=== PATIENT | female | born 1985 | race African-American/Black ===

== ENCOUNTER 2016-12-25 16:53 | Emergency (ER) | payer MEDICAID ==
[~2016-12-25] VITALS: Ht 162.6 cm; Wt 63.5 kg
--- NOTE | 2016-12-25 17:40 | Emergency Room Report ---
History of Present Illness General Chief Complaint: Multiple Trauma/Fall Source: Patient Present Illness HPI 31-year-old female presents to the emergency department complaining of 8/ 10 in severity pain to the left side of her neck that radiates down into the left shoulder, left shoulder pain, and left anterior knee pain status post mechanical slip and fall yesterday. Patient states that her symptoms were progressive overnight and she feels as though the side of her neck and upper shoulder muscles are tight as if she has a knot. She also reports tenderness. Patient states pain with movement of the shoulder, an exacerbation of her knee pain upon walking. She denies hitting her head or loss of consciousness. Patient denies midline neck or back pain. Denies numbness tingling or loss of sensation or gross motor movements of the extremities, incontinence of bowel or bladder. Denies CP, Palpitations, LOC, AMS, dizziness, Changes in Vision, Sensation, paresthesias, or a sudden severe headache. Allergies: Coded Allergies: AMOXICILLIN (Verified Allergy, Unknown, 12/25/16) Patient History Past Medical History: see triage record Past Surgical History: none Pertinent Family History: none Last Menstrual Period: 11/19/16 Now: No Immunizations: UTD Reviewed Nursing Documentation: PMH: Agreed, PSxH: Agreed Nursing Documentation-PMH Past Medical History: No Stated History Review of Systems All Other Systems: negative except mentioned in HPI Physical Exam Vital Signs Date Time Temp Pulse Resp B/P (MAP) Pulse Ox O2 Delivery O2 Flow Rate FiO2 12/25/16 17:01 98.2 74 14 102/67 98 Room Air Sp02 EP Interpretation: reviewed, normal General Appearance: no apparent distress, alert, GCS 15, non-toxic Head: normocephalic, atraumatic ENT: hearing grossly normal, normal voice Neck: full range of motion, tender lateral - left lateral ttp in the musculature, no midline ttp. Respiratory: chest non-tender, lungs clear, normal breath sounds, speaking full sentences Cardiovascular #1: regular rate, rhythm, normal capillary refill Gastrointestinal: non tender, soft Musculoskeletal: back normal, gait/station normal, normal range of motion, other - no midline spinal ttp. , tender - left knee anterior and lateral TTP, no increased laxity. no erythema, no incrased temperature to palpation, FROM . TTP to the top of the left shoulder and the lateral aspect of the left shoulder , mild trapezius muscle swelling noted, no obvious deformity, pain with FROM. Neurologic: alert, oriented x3, responsive, motor strength/tone normal, sensory intact, speech normal Skin: normal color, no rash, warm/dry, well hydrated Medical Decision Making PA Attestation Dr. uBtt is my supervising Physician whom patient management has been discussed with. Diagnostic Impression: Primary Impression: Muscle strain Additional Impressions: Contusion Qualified Codes: S80.02XA - Contusion of left knee, initial encounter Left knee sprain Qualified Codes: S83.92XA - Sprain of unspecified site of left knee, initial encounter Shoulder pain, acute Qualified Codes: M25.512 - Pain in left shoulder ER Course 31-year-old female presents to the emergency department complaining of 8/ 10 in severity pain to the left side of her neck that radiates down into the left shoulder, left shoulder pain, and left anterior knee pain status post mechanical slip and fall yesterday. Patient states that her symptoms were progressive overnight and she feels as though the side of her neck and upper shoulder muscles are tight as if she has a knot. She also reports tenderness. Patient states pain with movement of the shoulder, an exacerbation of her knee pain upon walking. She denies hitting her head or loss of consciousness. Patient denies midline neck or back pain. Denies numbness tingling or loss of sensation or gross motor movements of the extremities, incontinence of bowel or bladder. Denies CP, Palpitations, LOC, AMS, dizziness, Changes in Vision, Sensation, paresthesias, or a sudden severe headache. Ddx considered but are not limited to Fracture, dislocation, contusion, Sprain/ Strain/Spasm just to name a few Vital signs: are WNL, pt. is afebrile H&PE are most consistent with musculoskeletal injury will perform imaging to r/ o fractures/dislocations. ORDERS: - X-rays: Left Shoulder, and Left knee-- Unremarkable, no acute pathology. ED INTERVENTIONS: - Soma PO - Tylenol PO Medardo wrap applied to the left knee by RN. Pt. remains neurovascularly intact. - Left arm Sling applied by RN Pt. remains neurovascularly intact. DISCHARGE: At this time pt. is stable for d/c to home. Will provide printed patient care instructions, and any necessary prescriptions. Care plan and follow up instructions have been discussed with the patient prior to discharge. Other X-Ray Diagnostic Results Other X-Ray Diagnostic Results #1: X-Ray ordered: LEFT KNEE # of Views/Limited Vs Complete: 3 View Indication: Pain EP Interpretation: Yes PA Xray: Interpretation reviewed, by supervising , and agrees with findings. Interpretation: no dislocation, no soft tissue swelling, no fractures Impression: No acute disease Electronically Signed by: Yaquelin Cox PA-C Other X-Ray Diagnostic Results #2: X-Ray ordered: LEFT SHOULDER # of Views/Limited Vs Complete: 3 View Indication: Pain EP Interpretation: Yes PA Xray: Interpretation reviewed, by supervising MD, and agrees with findings. Interpretation: no dislocation, no soft tissue swelling, no fractures Impression: No acute disease Electronically Signed by: Yaquelin Cox PA-C Last Vital Signs Date Time Temp Pulse Resp B/P (MAP) Pulse Ox O2 Delivery O2 Flow Rate FiO2 12/25/16 17:01 98.2 74 14 102/67 98 Room Air Disposition: HOME, SELF-CARE Condition: Stable Scripts Ibuprofen* (MOTRIN*) 400 Mg Tablet 400 MG ORAL THREE TIMES A DAY, #30 TAB 0 Refills Prov: Yaquelin Cox 12/25/16 Methocarbamol* (ROBAXIN-750*) 750 Mg Tablet 750 MG PO QID for 7 Days, #28 TAB 0 Refills Prov: Yaquelin Cox 12/25/16 Referrals: NOT CHOSEN IPA/,REFERRING (PCP) Patient Instructions: Contusion, [id number], Knee Sprain, [id number], Muscle Strain, [id number] Additional Instructions: Take medications as directed. Follow up with a Primary Care Provider in 3-5 days, even if your symptoms have resolved. --Please review list of primary care clinics, if you do not already have a primary care provider Return sooner to ED if new symptoms occur, or current symptoms become worse. Do not drink alcohol, drive, or operate heavy machinery while taking Muscle Relaxers as this may cause drowsiness. - Please note that this Emergency Department Report was dictated using [employer] technology software, occasionally this can lead to erroneous entry secondary to interpretation by the dictation equipment. Yaquelin Cox Dec 25, 2016 17:40
[2016-12-25] MEDS ORDERED: IBUPROFEN400 MG ORAL (18:24)
[2016-12-25] MEDS ORDERED: ROBAXIN-750750 MG PO (18:24)
[2016-12-25 18:37] VITALS: BP 111/78
--- NOTE | 2016-12-26 09:17 | Diagnostic Imaging Report ---
Indications: PAIN, status post fall Technique: Three views of the left knee Comparison: None Findings: No acute fractures. No dislocations. Joint spaces are preserved. No radiopaque foreign body. Normal mineralization. Impression: No acute process
--- NOTE | 2016-12-26 09:18 | Diagnostic Imaging Report ---
Indication: PAIN, status post fall Technique: 3 views of the left shoulder Comparison: none Findings: No acute fractures. No dislocations. The joint spaces are preserved Impression:Negative
== END 2016-12-25 18:39 | disposition home or self-care (01) ==
LOC: EMR 17:24
DX: T14.8XXA Other injury of unspecified body region, initial encounter (principal); S80.02XA Contusion of left knee, initial encounter; S83.92XA Sprain of unspecified site of left knee, initial encounter; M25.512 Pain in left shoulder; W01.0XXA Fall on same level from slipping, tripping and stumbling without subsequent striking against object, initial encounter; Y92.89 Other specified places as the place of occurrence of the external cause; Z88.0 Allergy status to penicillin
CPT/HCPCS: 99284